=== PATIENT | female | born 1990 | race Two or more races ===

== ENCOUNTER 2017-04-02 03:44 | Observation (INO) | payer MEDICAID ==
[~2017-04-02 03:44] MED LIST: AUGMENTIN 875-1 EAC2 PO; COLACE100 M1 PO; DICLEGIS DR 101 EACH PO; HYDROCODON-ACE1 EA16 PO; IBUPROFEN600 M1 PO; IBUPROFEN800 M1 PO; MACROBID 100 M100 M1 PO; MULTIVITAMINS1 EAC6 PO; PAZEO2.5 ML OP; PERCOCET 5-3251 EACH PO; PRENATAL VITAM1 EAC5 PO; ZOFRAN4 M2 PO
[2017-04-02] MEDS ORDERED: NO HOME MEDICATION XX (04:09)
[2017-04-02 05:05] LABS: BASO % 0.1 % (0-2); EOS % 0.9 % (0-7); EOSINOPHIL ABSOLUTE COUNT 0.1 tho/cmm (0.0-0.7); HCT-HEMATOCRIT 30.4 % (34.0-49.0); IMMATURE GRANULOCYTES ABSOLUTE 0.11 tho/cmm (0-0.03); IMMATURE GRANULOCYTES PERCENT 1.4 % (0-0.3); LYMPH % 38.3 % (20-45); LYMPH ABSOLUTE COUNT 2.9 tho/cmm (0.8-4.5); MCH (MEAN CORPUSCULAR HGB) 28.4 pg (28.0-32.0); MCHC MEAN CORPUSCULAR HGB CONC 32.9 % (32.0-36.0); MCV (MEAN CELL VOLUME) 86.4 fl (82.0-96.0); MEAN PLATELET VOLUME 9.6 cmc (9.4-12.4); MONO % 8.2 % (0-12); MONOCYTE ABSOLUTE COUNT 0.6 tho/cmm (0.0-1.2); NEUTROPHIL ABSOLUTE COUNT 3.9 tho/cmm (1.6-8.0); NEUTROPHIL-AUTOMATED 3.9 tho/cmm (1.6-8.0); NEUTROPHILS % 51.1 % (40-80); PLATELET COUNT 284 tho/cmm (150-450); RED BLOOD COUNT 3.52 mil/cmm (4.00-5.20); RED CELL DISTRIBUTION WIDTH 13.4 % (12.4-16.4); WHITE BLOOD COUNT 7.7 tho/cmm (4.0-10.0)
[2017-04-02 05:12] LABS: INR 0.9 INR (0.9-1.1); PROTHROMBIN TIME 10.6 SECONDS (9.0-13.6)
[2017-04-02 05:19] LABS: ALB/GLOB RATIO 0.6 (0.8-2.0); ALBUMIN 2.6 g/dl (3.5-5.0); ALKALINE PHOSPHATASE 120 U/L (33-138); ALT/SGPT 16 U/L (12-78); ANION GAP 13 mmol/L (0-20); AST/SGOT 18 U/L (10-40); BILIRUBIN,TOTAL 0.3 mg/dl (0-1.5); BLOOD UREA NITROGEN 7 mg/dl (6-24); CALCIUM 8.7 mg/dl (8.5-10.5); CARBON DIOXIDE-VENOUS 22 mmol/L (22-32); CHLORIDE 112 mmol/l (96-110); CREATININE 0.49 mg/dl (0.50-1.10); GLUCOSE 99 mg/dL (70-110); LIPASE 277 U/L (73-393); POTASSIUM 3.9 mmol/L (3.7-5.1); SODIUM 143 mmol/L (135-145); eGFR VALUE FOR BLACK >90 mL/Min
[2017-05-05] MEDS ORDERED: VISTARIL50 M1 PO (16:26)
[2017-05-07] MEDS ORDERED: COLACE100 M1 PO (16:44)
[2017-05-07] MEDS ORDERED: IBUPROFEN800 M1 PO (16:44)
[2017-05-07] MEDS ORDERED: FERROUS GLUCON324 M3 PO (16:45)
[2017-05-08] MEDS ORDERED: NORCO 5-325 TA1 EACH PO (08:14)
[2017-05-08] MEDS ORDERED: AMITRIPTYLINE H25 M1 PO (08:15)
[2017-05-09] MEDS ORDERED: FIORICET 50-301 EAC1 PO (15:19)
== END 2017-04-02 09:34 ==
LOC: LDR 03:44
PROVIDERS: Family Medicine; ADMIT Obstetrics & Gynecology
DX: O99.89 Other specified diseases and conditions complicating pregnancy, childbirth and the puerperium (principal); R10.11 Right upper quadrant pain; Z3A.32 32 weeks gestation of pregnancy; Z98.890 Other specified postprocedural states
CPT/HCPCS: J3010